=== PATIENT | female | born 1955 | race African-American/Black ===

== ENCOUNTER 2016-09-02 09:18 | Observation (INO) | payer SELFPAY ==
[2016-09-02] MEDS: NS 1000 ML 1,000 ML IV SCH ×2 (11:15→12:57)
[2016-09-02 11:46] LABS: BASOPHILS # (AUTO) 0.1 X10^3/uL (0.0-0.1); EOSINOPHILS # (AUTO) 0.1 x10^3/uL (0.0-0.2); EOSINOPHILS % (AUTO) 1.7 % (0.9-2.9); HEMATOCRIT 35.5 % (36.0-47.0); HEMOGLOBIN 12.1 g/dL (12.0-16.0); LYMPHOCYTES # (AUTO) 1.7 X10^3/uL (1.3-2.9); LYMPHOCYTES % (AUTO) 28.8 % (21.0-51.0); MEAN CORPUSCULAR HEMOGLOBIN 31.2 pg (27.0-34.0); MEAN CORPUSCULAR VOLUME 91.8 fL (80.0-100.0); MEAN PLATELET VOLUME 8.8 fL (7.4-11.0); MONOCYTES # (AUTO) 0.5 x10^3/uL (0.3-0.8); MONOCYTES % (AUTO) 9.1 % (0.0-13.0); NEUTROPHILS # (AUTO) 3.4 x10^3/uL (2.2-4.8); NEUTROPHILS % (AUTO) 59.4 % (42.0-75.0); PLATELET COUNT 226 X10^3/uL (150.0-450.0); RED BLOOD COUNT 3.87 X10^6/uL (3.5-5.4); RED CELL DISTRIBUTION WIDTH 13.1 % (11.6-16.5); WHITE BLOOD COUNT 5.8 X10^3/uL (3.6-10.0)
[2016-09-02 11:59] LABS: ALANINE AMINOTRANSFERASE 20 Units/L (12-78); ALKALINE PHOSPHATASE 50 Units/L (46-116); AMYLASE 114 Units/L (25-115); ASPARTATE AMINO TRANSFERASE 23 Units/L (15-37); BLOOD UREA NITROGEN 15 mg/dL (7-18); CARBON DIOXIDE 29.1 mmol/L (21-32); CHLORIDE 106 mmol/L (98-107); COR CA(FOR HYPOALB) 8.8 mg/dL (8.5-10.1); CREATININE 0.76 mg/dL (0.55-1.02); GLUCOSE 99 mg/dL (65-99); LIPASE 273 Units/L (73-393); SODIUM 140 mmol/L (136-145); TOTAL PROTEIN 7.3 g/dL (6.4-8.2); eGFR BLACK RACES > 60 (>60); eGFR NON BLACK RACES > 60 (>60)
[2016-09-02] MEDS: PEPCID 20 MG IV PREMIX* 20 MG/50 ML BAG IV SCH (12:57)
[2016-09-02] MEDS ORDERED: NS 100 ML IV 100 ML IV ONE (14:32)
--- NOTE | 2016-09-02 15:12 | CT ---
HISTORY: Abdominal pain, fever , nausea, vomiting. Prior surgical history of hysterectomy Study: CT abdomen and pelvis with IV and oral contrast Comparison: January 14, 2015 Technique: Multiple axial images of the abdomen and pelvis were obtained from the lung bases to the pubic symph ysis during the administration of IV contrast. Oral contrast agents were also administered. Dose red uction techniques utilized automatic exposure control. Coronal and sagittal images are also reviewed . Findings: The visualized portions of the lung bases are unremarkable. The liver, spleen, pancreas, kidneys, a nd adrenal glands are unremarkable in their CT appearance. No residual parenchymal kidney stones are seen. The gallbladder is unremarkable in its CT appearance. No significant mesenteric lymphadenopa thy or stranding can be observed. No free fluid or free air is seen within the abdomen. No bowel w all thickening or bowel dilatation is present. The appendix is normal and lies lateral to the cecum. This extends cephalad. There is a moderately large amount of stool present throughout the colon. No significant diverticulosis is seen. The uterus and ovaries are surgically absent.. The urinary blad carmelo is grossly unremarkable. there is multilevel degenerative disc disease in the lower lumbar spin e. IMPRESSION: No evidence of renal mass, stone or hydronephrosis. Normal appendix. Large amount of stool present throughout the colon. No significant diverticulosis is seen. Surgically absent uterus and ovaries. Reported By:
--- NOTE | 2016-09-02 15:42 | US ---
STUDY: RIGHT UPPER QUADRANT ABDOMINAL ULTRASOUND HISTORY: Abdominal pain, nausea, vomiting. Comparison: None. Technique: Multiple valentine scale and color flow Doppler images of the right upper quadrant were obtain ed. Findings: The liver is normal in size and echotexture. There is no evidence of focal mass or intrahepatic jennifer e duct dilatation. The gallbladder is normal in appearance without evidence of cholelithiasis, cholecystitis, or perich olecystic fluid. Gallbladder wall thickness measures 1.3 mm. The common bile duct measures 5.5 mm. The right kidney is normal in size and echogenicity measuring 11.6 x 5.9 x 4.6 cm. There is no evide nce of focal parenchymal mass or cyst. There is no evidence of nephrolithiasis or hydronephrosis. Pancreatic duct measures 2.7 mm in diameter. IMPRESSION: 1. Mild dilatation of the pancreatic duct. Otherwise, unremarkable right upper quadrant ultrasound. Reported By:
[2016-09-02 15:45] LABS: BILIRUBIN,URINE NEGATIVE (NEGATIVE); BLOOD/HEMOGLOBIN,URINE NEGATIVE (NEGATIVE); GLUCOSE, URINE NEGATIVE (NEGATIVE); KETONES,URINE NEGATIVE (NEGATIVE); LEUKOCYTE ESTERASE ,URINE NEGATIVE (NEGATIVE); NITRITES,URINE NEGATIVE (NEGATIVE); PH,URINE 6.5 (5.0 - 8.0); PROTEIN,URINE NEGATIVE (NEGATIVE); UROBILINOGEN,URINE NORMAL (NORMAL)
[2016-09-02 15:54] LABS: APPEARANCE,URINE HAZY (CLEAR); BACTERIA,URINE TRACE /HPF (NEGATIVE); COLOR,URINE YELLOW (YELLOW); MUCUS,URINE FEW /HPF (NEGATIVE); RBC,URINE 0-2 /HPF (NEGATIVE); SQUAMOUS EPITHELIAL CELL,UR FEW /HPF (NEGATIVE)
[2016-09-02] MEDS: MILK OF MAGNESIA PO SCH ×2 (17:05→21:20)
[2016-09-02] MEDS: MIRALAX POWDER (1 DOSE 17GM) PO SCH (21:20)
[2016-09-02] MEDS: COLACE CAP 100 MG PO SCH (21:21)
[2016-09-03 06:12] LABS: BASOPHILS % (AUTO) 0.9 % (0.2-1.0); EOSINOPHILS # (AUTO) 0.1 x10^3/uL (0.0-0.2); EOSINOPHILS % (AUTO) 2.5 % (0.9-2.9); HEMATOCRIT 33.3 % (36.0-47.0); HEMOGLOBIN 11.4 g/dL (12.0-16.0); LYMPHOCYTES # (AUTO) 1.9 X10^3/uL (1.3-2.9); LYMPHOCYTES % (AUTO) 35.6 % (21.0-51.0); MEAN CORPUSCULAR HEMOGLOBIN 31.4 pg (27.0-34.0); MEAN CORPUSCULAR HGB CONC 34.1 g/dL (33.0-35.0); MEAN CORPUSCULAR VOLUME 92.1 fL (80.0-100.0); MEAN PLATELET VOLUME 9.4 fL (7.4-11.0); MONOCYTES # (AUTO) 0.6 x10^3/uL (0.3-0.8); MONOCYTES % (AUTO) 12.3 % (0.0-13.0); NEUTROPHILS # (AUTO) 2.6 x10^3/uL (2.2-4.8); NEUTROPHILS % (AUTO) 48.7 % (42.0-75.0); PLATELET COUNT 203 X10^3/uL (150.0-450.0); RED BLOOD COUNT 3.62 X10^6/uL (3.5-5.4); RED CELL DISTRIBUTION WIDTH 13.3 % (11.6-16.5); WHITE BLOOD COUNT 5.3 X10^3/uL (3.6-10.0)
[2016-09-03 06:42] LABS: ALANINE AMINOTRANSFERASE 20 Units/L (12-78); ALBUMIN 2.6 g/dL (3.4-5.0); ALKALINE PHOSPHATASE 47 Units/L (46-116); ASPARTATE AMINO TRANSFERASE 21 Units/L (15-37); BLOOD UREA NITROGEN 9 mg/dL (7-18); CALCIUM 7.6 mg/dL (8.5-10.1); CARBON DIOXIDE 27.6 mmol/L (21-32); CHLORIDE 108 mmol/L (98-107); COR CA(FOR HYPOALB) 8.7 mg/dL (8.5-10.1); CREATININE 0.63 mg/dL (0.55-1.02); GLUCOSE 95 mg/dL (65-99); SODIUM 141 mmol/L (136-145); TOTAL PROTEIN 6.4 g/dL (6.4-8.2); eGFR BLACK RACES > 60 (>60); eGFR NON BLACK RACES > 60 (>60)
[2016-09-03] MEDS: MIRALAX POWDER (1 DOSE 17GM) PO SCH ×2 (07:27→21:35)
[2016-09-03] MEDS: NS 1000 ML 1,000 ML IV SCH ×3 (07:27→22:45)
[2016-09-03] MEDS: PEPCID 20 MG IV PREMIX* 20 MG/50 ML BAG IV SCH ×2 (08:12→21:35)
[2016-09-03] MEDS: MILK OF MAGNESIA PO SCH ×4 (08:13→21:34)
--- NOTE | 2016-09-03 08:19 | DR.UPDATE ---
H&P Update History and Physical Update: PATIENT WAS SEEN IN THE OFFICE ON 09/02/16. A H&P WAS COMPLETED PRIOR TO ADMISSION. PATIENT HAS BEEN SEEN AND EXAMINED WITH NO CHANGES NOTED. Changes noted: NO Yes with the following:
[2016-09-03] MEDS ORDERED: ZOLOFT PO ONE (08:21)
[2016-09-03] MEDS: VITAMIN B-12 PO SCH (08:22)
[2016-09-03] MEDS: ZOLOFT PO SCH (08:22)
[2016-09-03] MEDS: MOBIC TAB 15 MG PO SCH (08:22)
[2016-09-03] MEDS: SYNTHROID 150 mcg TAB PO SCH (08:22)
[2016-09-03] MEDS ORDERED: ESTRADIOL PO SCH (09:00)
[2016-09-03] MEDS ORDERED: ZANTAC PO SCH (09:00)
[2016-09-03] MEDS ORDERED: MIRALAX POWDER (1 DOSE 17GM) PO SCH (09:00)
--- NOTE | 2016-09-03 09:23 | PCM.PROG ---
Progress Note - Progress Note for Day of Date: 09/03/16 - Subjective Subjective: WAS ADMITTED FROM OUR OFFICE YESTERDAY WITH COMPLAINTS OF NAUSEA, VOMITING, AND ABDOMINAL PAIN. SHE IS AWAKE AND ORIENTED IN BED ON MORNING ROUNDS. PATIENT COMPLAINS OF DIFFUSE ABDOMINAL PAIN. PATIENT STATES THAT SHE HAS ONLY HAD ONE SMALL BOWEL MOVEMENT SINCE YESTERDAY. ABD/PELVIS CT REPORTED LARGE AMOUNT OF STOOL PRESENT THROUGHOUT THE COLON. GALL BLADDER US REPORTED MILD DILATION OF THE PANCREATIC DUCT. SHE WAS STARTED ON A BOWEL REGIMEN YESTERDAY. WE WILL CONTINUE WITH THAT AND ORDER SOAP SUDS ENEMAS UNTIL PATIENT HAS A SIGNIFICANT BOWEL MOVEMENT. BOWEL SOUNDS ARE HYPOACTIVE IN ALL QUADRANTS. LUNGS ARE NOTED CLEAR TO AUSCULTATION. VITALS THIS MORNING WERE 98.9 , 88, 20, 98%, 100/62. CBC WNL EXCEPT HGB 11.4, HCT 33.3. CMP WNL EXCEPT CHLORIDE 108, CALCIUM 7.6, ALBUMIN 2.6. H-PYLORI WAS POSITIVE. WE WILL RECHECK CBC, CMP, AND FOLLOW UP WITH PATIENT IN AM. - Past Medical Family Social History Past Med/Fam/Surg Hx: No changes since H&P Allergies: Allergies MS Morphine [Morphine] Adverse Reaction (Verified 09/02/16 11:07) NAUSEA - Review of Systems ROS: No change since H&P - Vital Signs and I&O's Vital Signs: Temperature 98.9 F Pulse Rate [Right Brachial] 88 Respiratory Rate 20 Blood Pressure [Right Arm] 100/62 Blood Pressure 131/77 O2 Sat by Pulse Oximetry 98 Intake and Output: Intake & Output 08/31/16 09/01/16 09/02/16 09/03/16 11:59 11:59 11:59 11:59 Intake Total 1864 Balance 1864 - Physical Exam Oriented: Normal. negative: Time, Person, Place, Not Oriented, Unable to test, Other Eyes: Normal. negative: Blurred Vision, Diplopia, Discharge, Pain, Redness, Photophobia, Other Ear: Normal. negative: Right, Left, Swelling, Ecchymosis, Hemotypanum, Abrasion , Laceration Nose: Normal. negative: Injected, Discharge, Blood, Other Throat: Normal. negative: Tonsillar Hypertrophy, Red, Exudate, Dry, Other Respiratory: Normal. negative: Right, Left, Generalized, Superior, Inferior, Diminished, Wheezes, Rales, Rhonchi, OTHER Cardiovascular: Normal. negative: Tachycardia, Bradycardia, Irregular, S3, S4, Systolic, Diastolic, Murmur, Edema, Other : Normal. negative: Dysuria, Hematuria, Frequency, Discharge, Testicular Pain , Bleeding, , Other Auscultation: Bowel Sounds: Normal. negative: Bruit, Absent, Increased, Decreased, High Pitched, Other Palpation: Normal Tenderness: Diffuse Skin: Normal. negative: Decreased Turgur, Rash, Papular, Macular, Maculopapular , Vesicular, Pustular, Petechial, Red, Tender, Hot, Diaphoresis, Wound, Bruising , Ecchymosis, Other Musculoskeletal: Normal. negative: Right, Left, Shoulder, Clavicle, Arm, Elbow , Forearm, Wrist, Hand, Hip, Thigh, Knee, Leg, Ankle, Foot, Back:Thoracic, Back: Lumbar, Back:Midline, Back:Paraspinous, Pelvis, Swelling, Tender, Deformity, Pulse Deficit, Motor Deficit, Sensory Deficit, Instability, Crepitance Psychiatric: Normal Mood Description: Calm Affect: Normal Speech Pattern: Clear, Appropriate - Laboratory and Diagnostics Result Diagrams: 09/03/16 04:08 09/03/16 04:08 Labs: Laboratory WBC 5.3 X10^3/uL (3.6-10.0) 09/03/16 04:08 RBC 3.62 X10^6/uL (3.5-5.4) 09/03/16 04:08 Hgb 11.4 g/dL (12.0-16.0) L 09/03/16 04:08 Hct 33.3 % (36.0-47.0) L 09/03/16 04:08 MCV 92.1 fL (80.0-100.0) 09/03/16 04:08 MCH 31.4 pg (27.0-34.0) 09/03/16 04:08 MCHC 34.1 g/dL (33.0-35.0) 09/03/16 04:08 RDW 13.3 % (11.6-16.5) 09/03/16 04:08 Plt Count 203 X10^3/uL (150.0-450.0) 09/03/16 04:08 MPV 9.4 fL (7.4-11.0) 09/03/16 04:08 Neut % 48.7 % (42.0-75.0) 09/03/16 04:08 Lymph % 35.6 % (21.0-51.0) 09/03/16 04:08 [place] % 12.3 % (0.0-13.0) 09/03/16 04:08 Eos % 2.5 % (0.9-2.9) 09/03/16 04:08 Baso % 0.9 % (0.2-1.0) 09/03/16 04:08 Neut # 2.6 x10^3/uL (2.2-4.8) 09/03/16 04:08 Lymph # 1.9 X10^3/uL (1.3-2.9) 09/03/16 04:08 [place] # 0.6 x10^3/uL (0.3-0.8) 09/03/16 04:08 Eos # 0.1 x10^3/uL (0.0-0.2) 09/03/16 04:08 Baso # 0.0 X10^3/uL (0.0-0.1) 09/03/16 04:08 Absolute Nucleated RBC 0.2 /100WBC 09/03/16 04:08 Sodium 141 mmol/L (136-145) 09/03/16 04:08 Corrected Sodium TNP 09/03/16 04:08 Potassium 4.0 mmol/L (3.5-5.1) 09/03/16 04:08 Chloride 108 mmol/L (98-107) H 09/03/16 04:08 Carbon Dioxide 27.6 mmol/L (21-32) 09/03/16 04:08 BUN 9 mg/dL (7-18) 09/03/16 04:08 Creatinine 0.63 mg/dL (0.55-1.02) 09/03/16 04:08 Est GFR (MDRD) Af Amer > 60 (>60) 09/03/16 04:08 Est GFR (MDRD) Non-Af > 60 (>60) 09/03/16 04:08 Glucose 95 mg/dL (65-99) 09/03/16 04:08 Calcium 7.6 mg/dL (8.5-10.1) L 09/03/16 04:08 Corrected Calcium 8.7 mg/dL (8.5-10.1) 09/03/16 04:08 Total Bilirubin 0.20 mg/dL (0.2-1.0) 09/03/16 04:08 AST 21 Units/L (15-37) 09/03/16 04:08 ALT 20 Units/L (12-78) 09/03/16 04:08 Alkaline Phosphatase 47 Units/L (46-116) 09/03/16 04:08 Total Protein 6.4 g/dL (6.4-8.2) 09/03/16 04:08 Albumin 2.6 g/dL (3.4-5.0) L 09/03/16 04:08 Globulin 3.8 g/dL (2.5-4.5) 09/03/16 04:08 Albumin/Globulin Ratio 0.7 Ratio (1.1-2.1) L 09/03/16 04:08 Amylase 114 Units/L (25-115) 09/02/16 11:30 Lipase 273 Units/L (73-393) 09/02/16 11:30 Specimen Type Clean catch urine 09/02/16 15:35 Urine Color Yellow (YELLOW) 09/02/16 15:35 Urine Appearance Hazy (CLEAR) 09/02/16 15:35 Urine pH 6.5 (5.0 - 8.0) 09/02/16 15:35 Ur Specific [place] 1.010 (1.000-1.030) 09/02/16 15:35 Urine Protein Negative (NEGATIVE) 09/02/16 15:35 Urine Glucose (UA) Negative (NEGATIVE) 09/02/16 15:35 Urine Ketones Negative (NEGATIVE) 09/02/16 15:35 Urine Occult Blood Negative (NEGATIVE) 09/02/16 15:35 Urine Nitrite Negative (NEGATIVE) 09/02/16 15:35 Urine Bilirubin Negative (NEGATIVE) 09/02/16 15:35 Urine Urobilinogen Normal (NORMAL) 09/02/16 15:35 Ur Leukocyte Esterase Negative (NEGATIVE) 09/02/16 15:35 Urine RBC 0-2 /HPF (NEGATIVE) 09/02/16 15:35 Urine WBC 0-2 /HPF (NEGATIVE) 09/02/16 15:35 Ur Squamous Epith Cells Few /HPF (NEGATIVE) 09/02/16 15:35 Urine Bacteria Trace /HPF (NEGATIVE) 09/02/16 15:35 Urine Mucus Few /HPF (NEGATIVE) 09/02/16 15:35 Ur Culture Indicated? No/not indicated 09/02/16 15:35 H. pylori IgG Antibody Positive (NEGATIVE) A 09/02/16 11:30 - Plan (1) Helicobacter pylori (H. pylori) Status: Acute Plan: CONTINUE PEPCID, CONTINUE TO MONITOR (2) Constipation Status: Acute Qualifiers: Constipation type: unspecified constipation type Qualified Code(s): K59.00 - Constipation, unspecified Plan: CONTINUE MILK OF MAGNESIA, CONTINUE MIRALAX, CONTINUE COLACE, START SOAP SUDS ENEMAS, CONTINUE TO MONITOR (3) Nausea & vomiting Status: Acute Qualifiers: Vomiting type: unspecified Vomiting Intractability: non-intractable Qualified Code(s): R11.2 - Nausea with vomiting, unspecified Plan: CONTINUE WITH ZOFRAN, CONTINUE TO MONITOR (4) Depression Status: Chronic Qualifiers: Depression Type: major depressive disorder Major depression recurrence: recurrent Active/Remission status: remission status unspecified Major depression episode severity: M Psychotic features: P Trimester: T Qualified Code(s): F33.9 - Major depressive disorder, recurrent, unspecified Plan: CONTINUE ZOLOFT, CONTINUE TO MONITOR (5) Hypothyroidism Status: Acute Qualifiers: Hypothyroidism type: acquired Qualified Code(s): E03.9 - Hypothyroidism, unspecified Plan: CONTINUE SYNTHROID, CONTINUE TO MONITOR (6) Arthritis Status: Acute Plan: CONTINUE MOBIC, CONTINUE TO MONITOR (7) GERD (gastroesophageal reflux disease) Status: Acute Qualifiers: Esophagitis presence: E Plan: CONTINUE ZANTAC, CONTINUE TO MONITOR
[2016-09-03 11:40] VITALS: BMI 26.4
[2016-09-03] MEDS: ZOFRAN INJ 4 MG VIAL IVP PRN (12:20)
[2016-09-03] MEDS: COLACE CAP 100 MG PO SCH (21:34)
[2016-09-04 05:09] LABS: BASOPHILS % (AUTO) 0.9 % (0.2-1.0); EOSINOPHILS # (AUTO) 0.2 x10^3/uL (0.0-0.2); EOSINOPHILS % (AUTO) 3.6 % (0.9-2.9); HEMATOCRIT 34.5 % (36.0-47.0); HEMOGLOBIN 11.7 g/dL (12.0-16.0); LYMPHOCYTES # (AUTO) 1.8 X10^3/uL (1.3-2.9); LYMPHOCYTES % (AUTO) 37.6 % (21.0-51.0); MEAN CORPUSCULAR HEMOGLOBIN 31.5 pg (27.0-34.0); MEAN CORPUSCULAR HGB CONC 33.9 g/dL (33.0-35.0); MEAN PLATELET VOLUME 8.9 fL (7.4-11.0); MONOCYTES # (AUTO) 0.6 x10^3/uL (0.3-0.8); MONOCYTES % (AUTO) 11.9 % (0.0-13.0); NEUTROPHILS # (AUTO) 2.2 x10^3/uL (2.2-4.8); PLATELET COUNT 208 X10^3/uL (150.0-450.0); RED BLOOD COUNT 3.71 X10^6/uL (3.5-5.4); RED CELL DISTRIBUTION WIDTH 13.3 % (11.6-16.5); WHITE BLOOD COUNT 4.9 X10^3/uL (3.6-10.0)
[2016-09-04 05:30] LABS: ALANINE AMINOTRANSFERASE 19 Units/L (12-78); ALBUMIN 2.7 g/dL (3.4-5.0); ALKALINE PHOSPHATASE 49 Units/L (46-116); ASPARTATE AMINO TRANSFERASE 22 Units/L (15-37); BLOOD UREA NITROGEN 7 mg/dL (7-18); CALCIUM 7.4 mg/dL (8.5-10.1); CHLORIDE 107 mmol/L (98-107); COR CA(FOR HYPOALB) 8.4 mg/dL (8.5-10.1); CREATININE 0.68 mg/dL (0.55-1.02); GLUCOSE 90 mg/dL (65-99); SODIUM 141 mmol/L (136-145); TOTAL PROTEIN 6.6 g/dL (6.4-8.2); eGFR BLACK RACES > 60 (>60); eGFR NON BLACK RACES > 60 (>60)
[2016-09-04] MEDS: NS 1000 ML 1,000 ML IV SCH ×4 (05:49→20:43)
[2016-09-04] MEDS ORDERED: ZOLOFT PO ONE (07:57)
[2016-09-04] MEDS: VITAMIN B-12 PO SCH (09:07)
[2016-09-04] MEDS: MOBIC TAB 15 MG PO SCH (09:07)
[2016-09-04] MEDS: SYNTHROID 150 mcg TAB PO SCH (09:07)
[2016-09-04] MEDS: MILK OF MAGNESIA PO SCH ×4 (09:07→20:30)
[2016-09-04] MEDS: ZOLOFT PO SCH (09:07)
[2016-09-04] MEDS: PATIENT'S HOME MEDICATION (Estradiol [Estrace] 2 MG) PO SCH (09:08)
[2016-09-04] MEDS: PEPCID 20 MG IV PREMIX* 20 MG/50 ML BAG IV SCH ×2 (09:08→20:26)
--- NOTE | 2016-09-04 12:23 | RAD ---
HISTORY: Constipation Study: KUB Comparison: CT scan of the abdomen and pelvis done September 02, 2016. Findings: Evaluation of the abdomen demonstrates a large amount of stool present involving the right colon. Sm aller amount of stool is present in the rectosigmoid. No bowel obstruction is seen. No pathological soft tissue mass or calcification can be observed. The bony structures are grossly intact. IMPRESSION: Colon stool as described. No bowel obstruction is seen. Reported By:
[2016-09-04] MEDS: ZOFRAN INJ 4 MG VIAL IVP PRN (15:56)
[2016-09-04] MEDS ORDERED: CITROMA PO ONE (16:45)
[2016-09-04] MEDS: MIRALAX POWDER (1 DOSE 17GM) PO SCH (20:26)
[2016-09-04] MEDS: COLACE CAP 100 MG PO SCH (20:30)
--- NOTE | 2016-09-04 22:04 | PCM.PROG ---
Progress Note - Progress Note for Day of Date: 09/04/16 - Subjective Subjective: WAS ADMITTED FROM OUR OFFICE WITH COMPLAINTS OF NAUSEA, VOMITING, AND ABDOMINAL PAIN. SHE IS AWAKE AND ORIENTED IN BED ON MORNING ROUNDS. PATIENT CONTINUES WITH COMPLAINS OF DIFFUSE ABDOMINAL PAIN. PATIENT STATES THAT SHE HAS HAD TWO SMALL BOWEL MOVEMENTS AFTER GETTING SOAP SUDS ENEMAS. BOWEL SOUNDS ARE HYPOACTIVE IN ALL QUADRANTS. LUNGS ARE NOTED CLEAR TO AUSCULTATION. VITALS THIS MORNING WERE 98.5, 70, 20, 96, 134/73. CBC WNL EXCEPT HGB 11.7, HCT 34.5. CMP WNL EXCEPT CALCIUM 8.4, ALBUMIN 2.7. H-PYLORI WAS POSITIVE. WE WILL CHECK A KUB AND WILL PLAN TO DISCHARGE PATIENT IF CLEAR. - Past Medical Family Social History Past Med/Fam/Surg Hx: No changes since H&P Allergies: Allergies MS Morphine [Morphine] Adverse Reaction (Verified 09/02/16 11:07) NAUSEA - Review of Systems ROS: No change since H&P - Vital Signs and I&O's Vital Signs: Temperature 98.8 F Pulse Rate [Right Brachial] 74 Respiratory Rate 18 Blood Pressure [Right Arm] 153/82 Blood Pressure 131/77 O2 Sat by Pulse Oximetry 97 Intake and Output: Intake & Output 09/02/16 09/03/16 09/04/16 09/05/16 11:59 11:59 11:59 11:59 Intake Total 1864 3436 340 Balance 1864 3436 340 - Physical Exam Oriented: Normal. negative: Time, Person, Place, Not Oriented, Unable to test, Other Eyes: Normal. negative: Blurred Vision, Diplopia, Discharge, Pain, Redness, Photophobia, Other Ear: Normal. negative: Right, Left, Swelling, Ecchymosis, Hemotypanum, Abrasion , Laceration Nose: Normal. negative: Injected, Discharge, Blood, Other Throat: Normal. negative: Tonsillar Hypertrophy, Red, Exudate, Dry, Other Respiratory: Normal. negative: Right, Left, Generalized, Superior, Inferior, Diminished, Wheezes, Rales, Rhonchi, OTHER Cardiovascular: Normal. negative: Tachycardia, Bradycardia, Irregular, S3, S4, Systolic, Diastolic, Murmur, Edema, Other : Normal. negative: Dysuria, Hematuria, Frequency, Discharge, Testicular Pain , Bleeding, , Other Auscultation: Bowel Sounds: Normal. negative: Bruit, Absent, Increased, Decreased, High Pitched, Other Palpation: Normal Tenderness: Diffuse Skin: Normal. negative: Decreased Turgur, Rash, Papular, Macular, Maculopapular , Vesicular, Pustular, Petechial, Red, Tender, Hot, Diaphoresis, Wound, Bruising , Ecchymosis, Other Musculoskeletal: Normal. negative: Right, Left, Shoulder, Clavicle, Arm, Elbow , Forearm, Wrist, Hand, Hip, Thigh, Knee, Leg, Ankle, Foot, Back:Thoracic, Back: Lumbar, Back:Midline, Back:Paraspinous, Pelvis, Swelling, Tender, Deformity, Pulse Deficit, Motor Deficit, Sensory Deficit, Instability, Crepitance Psychiatric: Normal Mood Description: Calm Affect: Normal Speech Pattern: Clear, Appropriate - Laboratory and Diagnostics Result Diagrams: 09/04/16 04:25 09/04/16 04:25 Labs: Laboratory WBC 4.9 X10^3/uL (3.6-10.0) 09/04/16 04:25 RBC 3.71 X10^6/uL (3.5-5.4) 09/04/16 04:25 Hgb 11.7 g/dL (12.0-16.0) L 09/04/16 04:25 Hct 34.5 % (36.0-47.0) L 09/04/16 04:25 MCV 93.0 fL (80.0-100.0) 09/04/16 04:25 MCH 31.5 pg (27.0-34.0) 09/04/16 04:25 MCHC 33.9 g/dL (33.0-35.0) 09/04/16 04:25 RDW 13.3 % (11.6-16.5) 09/04/16 04:25 Plt Count 208 X10^3/uL (150.0-450.0) 09/04/16 04:25 MPV 8.9 fL (7.4-11.0) 09/04/16 04:25 Neut % 46.0 % (42.0-75.0) 09/04/16 04:25 Lymph % 37.6 % (21.0-51.0) 09/04/16 04:25 [place] % 11.9 % (0.0-13.0) 09/04/16 04:25 Eos % 3.6 % (0.9-2.9) H 09/04/16 04:25 Baso % 0.9 % (0.2-1.0) 09/04/16 04:25 Neut # 2.2 x10^3/uL (2.2-4.8) 09/04/16 04:25 Lymph # 1.8 X10^3/uL (1.3-2.9) 09/04/16 04:25 [place] # 0.6 x10^3/uL (0.3-0.8) 09/04/16 04:25 Eos # 0.2 x10^3/uL (0.0-0.2) 09/04/16 04:25 Baso # 0.0 X10^3/uL (0.0-0.1) 09/04/16 04:25 Absolute Nucleated RBC 0.0 /100WBC 09/04/16 04:25 Sodium 141 mmol/L (136-145) 09/04/16 04:25 Corrected Sodium TNP 09/04/16 04:25 Potassium 4.2 mmol/L (3.5-5.1) 09/04/16 04:25 Chloride 107 mmol/L (98-107) 09/04/16 04:25 Carbon Dioxide 28.0 mmol/L (21-32) 09/04/16 04:25 BUN 7 mg/dL (7-18) 09/04/16 04:25 Creatinine 0.68 mg/dL (0.55-1.02) 09/04/16 04:25 Est GFR (MDRD) Af Amer > 60 (>60) 09/04/16 04:25 Est GFR (MDRD) Non-Af > 60 (>60) 09/04/16 04:25 Glucose 90 mg/dL (65-99) 09/04/16 04:25 Calcium 7.4 mg/dL (8.5-10.1) L 09/04/16 04:25 Corrected Calcium 8.4 mg/dL (8.5-10.1) L 09/04/16 04:25 Total Bilirubin 0.20 mg/dL (0.2-1.0) 09/04/16 04:25 AST 22 Units/L (15-37) 09/04/16 04:25 ALT 19 Units/L (12-78) 09/04/16 04:25 Alkaline Phosphatase 49 Units/L (46-116) 09/04/16 04:25 Total Protein 6.6 g/dL (6.4-8.2) 09/04/16 04:25 Albumin 2.7 g/dL (3.4-5.0) L 09/04/16 04:25 Globulin 3.9 g/dL (2.5-4.5) 09/04/16 04:25 Albumin/Globulin Ratio 0.7 Ratio (1.1-2.1) L 09/04/16 04:25 Amylase 114 Units/L (25-115) 09/02/16 11:30 Lipase 273 Units/L (73-393) 09/02/16 11:30 Specimen Type Clean catch urine 09/02/16 15:35 Urine Color Yellow (YELLOW) 09/02/16 15:35 Urine Appearance Hazy (CLEAR) 09/02/16 15:35 Urine pH 6.5 (5.0 - 8.0) 09/02/16 15:35 Ur Specific [place] 1.010 (1.000-1.030) 09/02/16 15:35 Urine Protein Negative (NEGATIVE) 09/02/16 15:35 Urine Glucose (UA) Negative (NEGATIVE) 09/02/16 15:35 Urine Ketones Negative (NEGATIVE) 09/02/16 15:35 Urine Occult Blood Negative (NEGATIVE) 09/02/16 15:35 Urine Nitrite Negative (NEGATIVE) 09/02/16 15:35 Urine Bilirubin Negative (NEGATIVE) 09/02/16 15:35 Urine Urobilinogen Normal (NORMAL) 09/02/16 15:35 Ur Leukocyte Esterase Negative (NEGATIVE) 09/02/16 15:35 Urine RBC 0-2 /HPF (NEGATIVE) 09/02/16 15:35 Urine WBC 0-2 /HPF (NEGATIVE) 09/02/16 15:35 Ur Squamous Epith Cells Few /HPF (NEGATIVE) 09/02/16 15:35 Urine Bacteria Trace /HPF (NEGATIVE) 09/02/16 15:35 Urine Mucus Few /HPF (NEGATIVE) 09/02/16 15:35 Ur Culture Indicated? No/not indicated 09/02/16 15:35 Stool Description 2,oz yellow,formed 09/03/16 10:30 Stl Occult Blood (IFOB) Negative (NEGATIVE) 09/03/16 10:30 H. pylori IgG Antibody Positive (NEGATIVE) A 09/02/16 11:30 - Plan (1) Helicobacter pylori (H. pylori) Status: Acute Plan: CONTINUE PEPCID, CONTINUE TO MONITOR (2) Constipation Status: Acute Qualifiers: Constipation type: unspecified constipation type Qualified Code(s): K59.00 - Constipation, unspecified Plan: CONTINUE MILK OF MAGNESIA, CONTINUE MIRALAX, CONTINUE COLACE, START SOAP SUDS ENEMAS, CONTINUE TO MONITOR (3) Nausea & vomiting Status: Acute Qualifiers: Vomiting type: unspecified Vomiting Intractability: non-intractable Qualified Code(s): R11.2 - Nausea with vomiting, unspecified Plan: CONTINUE WITH ZOFRAN, CONTINUE TO MONITOR (4) Depression Status: Chronic Qualifiers: Depression Type: major depressive disorder Major depression recurrence: recurrent Active/Remission status: remission status unspecified Major depression episode severity: M Psychotic features: P Trimester: T Qualified Code(s): F33.9 - Major depressive disorder, recurrent, unspecified Plan: CONTINUE ZOLOFT, CONTINUE TO MONITOR (5) Hypothyroidism Status: Acute Qualifiers: Hypothyroidism type: acquired Qualified Code(s): E03.9 - Hypothyroidism, unspecified Plan: CONTINUE SYNTHROID, CONTINUE TO MONITOR (6) Arthritis Status: Acute Plan: CONTINUE MOBIC, CONTINUE TO MONITOR (7) GERD (gastroesophageal reflux disease) Status: Acute Qualifiers: Esophagitis presence: without esophagitis Qualified Code(s): K21.9 - Gastro -esophageal reflux disease without esophagitis Plan: CONTINUE ZANTAC, CONTINUE TO MONITOR
[2016-09-05 04:26] LABS: EOSINOPHILS # (AUTO) 0.2 x10^3/uL (0.0-0.2); EOSINOPHILS % (AUTO) 3.8 % (0.9-2.9); HEMATOCRIT 33.8 % (36.0-47.0); HEMOGLOBIN 11.3 g/dL (12.0-16.0); LYMPHOCYTES % (AUTO) 38.7 % (21.0-51.0); MEAN CORPUSCULAR HEMOGLOBIN 30.8 pg (27.0-34.0); MEAN CORPUSCULAR HGB CONC 33.5 g/dL (33.0-35.0); MEAN CORPUSCULAR VOLUME 91.9 fL (80.0-100.0); MEAN PLATELET VOLUME 8.6 fL (7.4-11.0); MONOCYTES # (AUTO) 0.6 x10^3/uL (0.3-0.8); MONOCYTES % (AUTO) 11.7 % (0.0-13.0); NEUTROPHILS # (AUTO) 2.3 x10^3/uL (2.2-4.8); NEUTROPHILS % (AUTO) 44.8 % (42.0-75.0); PLATELET COUNT 200 X10^3/uL (150.0-450.0); RED BLOOD COUNT 3.68 X10^6/uL (3.5-5.4); RED CELL DISTRIBUTION WIDTH 13.1 % (11.6-16.5); WHITE BLOOD COUNT 5.1 X10^3/uL (3.6-10.0)
[2016-09-05 04:40] LABS: ALANINE AMINOTRANSFERASE 21 Units/L (12-78); ALBUMIN 2.7 g/dL (3.4-5.0); ALKALINE PHOSPHATASE 47 Units/L (46-116); ASPARTATE AMINO TRANSFERASE 22 Units/L (15-37); BLOOD UREA NITROGEN 8 mg/dL (7-18); CARBON DIOXIDE 27.6 mmol/L (21-32); CHLORIDE 107 mmol/L (98-107); CREATININE 0.67 mg/dL (0.55-1.02); GLUCOSE 88 mg/dL (65-99); SODIUM 139 mmol/L (136-145); TOTAL PROTEIN 6.6 g/dL (6.4-8.2); eGFR BLACK RACES > 60 (>60); eGFR NON BLACK RACES > 60 (>60)
[2016-09-05] MEDS: NS 1000 ML 1,000 ML IV SCH ×3 (08:00→11:59)
[2016-09-05] MEDS ORDERED: ZOLOFT PO ONE (08:12)
[2016-09-05] MEDS: MOBIC TAB 15 MG PO SCH (08:31)
[2016-09-05] MEDS: SYNTHROID 150 mcg TAB PO SCH (08:32)
[2016-09-05] MEDS: ZOLOFT PO SCH (08:32)
[2016-09-05] MEDS: VITAMIN B-12 PO SCH (08:32)
[2016-09-05] MEDS: MILK OF MAGNESIA PO SCH ×3 (08:32→16:13)
[2016-09-05] MEDS: PATIENT'S HOME MEDICATION (Estradiol [Estrace] 2 MG) PO SCH (08:33)
[2016-09-05] MEDS: PEPCID 20 MG IV PREMIX* 20 MG/50 ML BAG IV SCH (08:34)
[2016-09-05] MEDS ORDERED: CITROMA PO ONE (09:16)
[2016-09-05] MEDS ORDERED: DULCOLAX SUPPOSITORY 10 MG RECTAL ONE ×2 (09:16→11:45)
[2016-09-05 16:07] VITALS: BP 134/83
--- NOTE | 2016-09-05 16:33 | RAD ---
HISTORY: Abdominal pain. Study: KUB exam. Comparison: September 04, 2016. Findings: Evaluation of the abdomen demonstrates a nonspecific and nonobstructive bowel gas pattern. No patho logical soft tissue mass effect or calcification can be observed. There is a normal quantity of colo [place]ana stool. Lumbar spondylosis is seen. The bony structures are grossly intact. IMPRESSION: 1. No evidence for acute abdominal pathology. Nonspecific bowel gas pattern. 2. Normal quantity of colonic stool. No evidence for a bowel obstruction. Reported By:
--- NOTE | 2016-09-05 18:18 | DR.CARTERD ---
- Discharge Summary for: Discharge Summary for Date of:: 09/05/16 - Admission Date Date of Admission: 09/02/16 - Admission Diagnoses Admission Diagnosis: 1) ABDOMINAL PAIN 2) NAUSEA/VOMITING 3)WEAKNESS - Discharge Date Discharge Date: 09/05/16 - Discharge Diagnoses Discharge Diagnosis: (1) Helicobacter pylori (H. pylori) (2) Constipation (3) Nausea & vomiting (4) Depression (5) Hypothyroidism (6) Arthritis (7) GERD (gastroesophageal reflux disease) - Hospital Course Hospital Course: IS A 63 YEAR OLD PATIENT OF OURS WHO WAS A DIRECT ADMISSION FROM OUR OFFICE WITH COMPLAINTS OF ABDOMINAL PAIN, IN THE EPIGASTRIC AREA. PATIENTS SYMPTOMS WERE ACCOMPANIED BY POOR APPETITE, NAUSEA, AND VOMITING. PATIENT WAS ALSO NOTED WITH COMPLAINTS OF FATIGUE AND ANXIETY. SHE STATED THAT SHE HAS NOT HAD A BOWEL MOVEMENT IN DAYS. WE ADMITTED PATIENT FOR FURTHER TREATMENT AND EVALUATION. WE STARTED HER ON NS @100ML/HR, ZOFRAN IV FOR NAUSEA, MILK OF MAGNESIA, AND COLACE. WE PLANNED TO CHECK A CT ABD/PELVIS WITH CONTRAST AND A GALLBLADDER US ON ADMISSION. WE ALSO PLANNED TO CHECK A CBC, CMP, H-PYLORI, AND URINALYSIS. ON ADMISSION, CBC WNL EXCEPT HCT 33.5. CMP WNL EXCEPT CALCIUM 8.0, ALBUMIN 3.0. H-PYLORI WAS POSITIVE. ON THE MORNING FOLLOWING ADMISSION, PATIENT CONTINUED WITH ABDOMINAL PAIN AND NAUSEA. SHE DENIES HAVING A SIGNIFICANT BOWEL MOVEMENT, DESPITE TAKING MILK OF MAGNESIA AND COLACE SCHEDULED DOSES. WE CHECKED A CT ABD/PELVIS WHICH REPORTED A LARGE AMOUNT OF STOOL PRESENT THROUGHOUT THE COLON. WE STARTED PATIENT ON MIRALAX DAILY AND SOAP SUDS ENEMAS. ON DAY 3 OF STAY, PATIENT REPORTED DECREASE IN ABDOMINAL PAIN. SHE -CONTINUED WITH NAUSEA. PATIENT REPORTS HAVING TWO SMALL BOWEL MOVEMENTS AFTER RECEIVING SOAP SUDS ENEMAS. WE CHECKED A KUB WHICH REPORTED THAT A LARGE AMOUNT OF STOOL WAS STILL PRESENT IN THE RIGHT COLON. WE ORDERED A ONE TIME DOSE OF MAGNESIUM CITRATE. PATIENT HAD SMALL BOWEL MOVEMENT. ON THE DAY OF DISCHARGE, PATIENT IS NOTED SITTING UP IN BED, ALERT AND ORIENTED. SHE REPORTED SIGNIFICANT IMPROVEMENT IN ABDOMINAL PAIN. SHE DENIED NAUSEA OR VOMITING. PATIENT REPORTS SMALL BOWEL MOVEMENT. VITALS THIS AM WERE 98.2-96-74-97-115/90. CBC WNL EXCEPT HGB 11.3, HCT 33.8. CMP WNL EXCEPT CALCIUM 8.0, ALBUMIN 2.7. WE ORDERED PATIENT ANOTHER ONE TIME DOSE OF MAGNESIUM CITRATE AND A DULCOLOX SUPPOSITORY. PATIENT ALSO RECEIVED ANOTHER SOAP SUDS ENEMA. STAFF REPORTED THAT PATIENT HAD A SIGNIFICANT BOWEL MOVEMENT. WE RECHECKED A KUB WHICH REPORTED A NORMAL AMOUNT OF STOOL IN THE COLON. WE PLANNED FOR DISCHARGE. INSTRUCTIONS FOR MEDICATION AND FOLLOW UP WERE DISCUSSED WITH PATIENT AND FAMILY. BOTH VERBALIZED UNDERSTANDING. PATIENT WAS DISCHARGED HOME IN STABLE CONDITION WITH FAMILY WITH INSTRUCTIONS TO FOLLOW UP IN OFFICE NEXT WEEK. WE WILL REFER HER TO FOR AN OUTPATIENT COLONOSCOPY. SHE WILL CONTINUE ON CURRENT HOME MEDICATIONS AND WILL BE DISCHARGED WITH A PRESCRIPTION FOR PEPCID, MILK OF MAGNESIA, COLACE, AND MIRALAX. - Discharge Medications Discharge Medications: Cyanocobalamin (Vitamin B-12) [B-12] 1 tab PO DAILY 09/02/16 [History] Estradiol [Estrace] 2.5 mg PO DAILY 09/02/16 [History] Levothyroxine Sodium [SYNTHROID 150 mcg *] 1 tab PO DAILY 09/02/16 [History] Meloxicam [MOBIC 15 MG *] 1 tab PO DAILY 09/02/16 [History] Ranitidine HCl [ZANTAC TAB 150 MG *] 1 tab PO BID 09/02/16 [History] Sertraline HCl [ZOLOFT 100 MG *] 1 tab PO DAILY 09/02/16 [History] Docusate Sodium [COLACE CAP 100 MG *] 200 mg PO HS #30 cap 09/04/16 [Rx] Famotidine [Pepcid Tab 20 mg] 20 mg PO BID #60 tab 09/04/16 [Rx] Magnesium Hydroxide Susp [MILK of MAGNESIA SUSP *] 10 ml PO QID PRN #1 bottle [Rx] Polyethylene Glycol Pwd Ud [MIRALAX POWDER (17 GM DOSE) *] 17 gm PO HS #1 bottle 09/04/16 [Rx]
== END 2016-09-05 17:07 | disposition home or self-care (01) ==
LOC: UNDOADMOB 09:18 → MED/SURG 09:18
PROVIDERS: ADMIT Internal Medicine; ATTEND Internal Medicine
DX: R10.84 Generalized abdominal pain (principal); R11.2 Nausea with vomiting, unspecified; R50.9 Fever, unspecified; R53.1 Weakness; B96.81 Helicobacter pylori [H. pylori] as the cause of diseases classified elsewhere; K59.00 Constipation, unspecified; F32.89 Other specified depressive episodes; E03.8 Other specified hypothyroidism; M13.89 Other specified arthritis, multiple sites; K21.9 Gastro-esophageal reflux disease without esophagitis
CPT/HCPCS: 36415; 74000; 74177; 76705; 80053; 81001; 82150; 82270; 83690; 85025; 86677; A4222; S0028; G0378; J2405

== ENCOUNTER 2017-03-13 16:45 | Emergency (ER) | payer SELFPAY ==
[2017-03-13 16:51] VITALS: BP 118/59; BMI 28.4
[2017-03-13] MEDS ORDERED: TORADOL 60 MG VIAL IM ONE (18:23)
--- NOTE | 2017-03-13 18:24 | DR.GENAD ---
HPI - PCP Primary Care Physician: MARKUS - Complaint/Symptoms Chief Complaint:: PT C/O RT LOWER LEG PAIN. PT STATES SHE IS WORRIED IT IS A BLOOD CLOT. PT HAS A HISTORY OF A BLOOD CLOT IN THIS LEG. PT STATES THE PAIN HAS BEEN COMING AND GOING ON AND OFF FOR 2-3 WEEKS - Nurses notes reviewed Nurses Notes Review: Yes - Source History Provided: Patient - Mode of Arrival Mode of Arrival: Ambulatory - Timing Onset of Chief Complaint: 02/27/17 Came on: Suddenly - Duration Duration: Constant Duration: Days - Severity Severity: Moderate PMH - PMH Past Medical History: Yes Past Medical History: Hypothyroidism, Kidney Stones Past Medical History Comment: BLOOD CLOT Past Surgical History: Yes Surgical History: STONEMASON Surgery, Thyroidectomy - Family History History of Family Medical Conditions: No - Social History Does any household member use tobacco: No Alcohol Use: None Do you use any recreational Drugs:: No Lives With: Family Lives Where: Home - infectious screening In the last 2 months have you had wt loss of >10#?: NO Have you had fever, night sweats or hemotysis?: No Have you traveled outside the country in the last 6 months?: No Isolation: Standard ROS - Review of Systems Constitutional: No Symptoms Reported Eyes: No Symptoms Reported ENTM: No Symptoms Reported Respiratoy: No Symptoms Reported Cardiovascular: No Symptoms Reported Gastrointestinal/Abdominal: No Symptoms Reported Genitourinary: No Symptoms Reported Neurological: No Symptoms Reported Musculoskeletal: Right, Leg Integumentary: No Symptoms Reported Endocrine: No Symptoms Reported All Other Systems: Reviewed and Negative PE - Vital Signs Vitals: Temperature 98.5 F Pulse Rate 79 Respiratory Rate 18 Blood Pressure [Right Arm] 134/83 Blood Pressure 118/59 O2 Sat by Pulse Oximetry 99 - General Limitations: No Limitations General Appearance: Alert - Head Head Exam: Normal Inspection - Eyes Eye exam: Normal Appearance - ENT ENT Exam: Normal External Ear Exam External Ear Exam: Normal External Inspection TM/Canal Exam: Bilateral Normal Nose Exam: Normal Nose Exam Mouth Exam: Normal Inspection Throat Exam: Normal Inspection - Neck Neck Exam: Trachea Midline - Chest Chest Inspection: Normal Inspection - Respiratory Respiratory Exam: Normal Lung Sounds Bilat Respiratory Exam: Bilateral Clear to Auscultation - Cardiovascular Cardiovascular Exam: Regular Rate, Normal Rhythm, Normal Heart Sounds - Abdominal Exam Abdominal Exam: Normal Bowel Sounds, Soft. negative: Tenderness - Extremities Extremities Exam: Tenderness - Back Back Exam: Normal Inspection - Neurologic Neurological Exam: Alert, Oriented X3 - Psychiatric Psychiatric Exam: Normal Affect, Normal Mood - Skin Skin Exam: Normal Color ROR - Labs Reviewed Laboratory: D-Dimer < 100 ng/mL (0-400) 03/13/17 18:35 - Discharge Plan Condition: Stable Prescriptions: Tramadol HCl 50 mg PO Q8H PRN #15 tablet PRN Reason: - Follow ups/Referrals Follow ups/Referrals: [facility],None [Primary Care Provider] - 3 days - Instructions Instructions: Musculoskeletal Pain Additional Instructions: RETURN TO ED IF WORSE.
[2017-03-13] MEDS ORDERED: TORADOL 60 MG VIAL ONE (18:36)
== END 2017-03-13 20:03 | disposition home or self-care (01) ==
LOC: ER 16:55
DX: M79.1 Myalgia (principal)
CPT/HCPCS: 36415; 85378; 96372; 99282; J1885